=== PATIENT | male | born 1965 | race Caucasian/White ===

== ENCOUNTER 2023-12-19 10:57 | Emergency (ER) | payer BC, SELFPAY ==
[2023-12-19 11:02] VITALS: BP 149/98
--- NOTE | 2023-12-19 11:43 | ED.GENMED ---
History of Present Illness
General
Chief Complaint: Musculo-Skeletal Complaint
Source: patient
Exam Limitations: none
Time Seen by Provider: 12/19/23 11:25
Nursing documentation reviewed up to this point in time: agreed with
History of Present Illness
History of Present Illness:
58-year-old right-handed male with a past medical history of GERD who presents to the emergency department for evaluation of a left hand injury. Patient reports that he was lifting a heavy box last night and he felt a minor pop in his left hand at
the base of his middle finger. He says that when he looked at it he noticed his extensor tendon near his third MCP joint looks to be deviated towards the pinky. He says that he moved his hand around to bed and seemed to go back to normal however
this morning woke up with pain and swelling near his third MCP joint and so he came to the ER for evaluation. He denies any other injuries or complaints.
Past History
Past History
ED Past Medical History: Other (DVT)
ED Past Surgical History: None
Social History
Tobacco: Non-smoker
Personal:
Living: with family
Employment: Employed
Review of Systems
Review of Systems
All Other Systems: ROS reviewed and negative except as documented in HPI and ROS
Musculoskeletal: Reports other (Hand pain and swelling)
Phy Exam
Physical Exam
Physical Exam:
General: Well appearing and non-toxic
HEENT: protecting airway
Neck: appears supple
CV: No evidence of cyanosis
Resp: No accessory muscle use
Abd: Non-distended
Extremities: Patient has swelling of the left hand over the dorsum of the third MCP joint and localized tenderness in this area and minor bruising; he is able to move the hand including the third digit at the MCP joint through full flexion and
extension with reasonable strength only mild pain at extremes of flexion and extension of the third digit; brisk capillary refill, warm and well-perfused
Neuro: Alert
Psych: Normal affect
Skin: Intact
Scores
Heart Failure Risk
Heart Failure Risk Score: Not Applicable
Heart Score for Chest Pain Patients
STEMI patient?: Not applicable
Withdrawal Assessment of Alcohol
Withdrawal Assessment Completed?: Not applicable
Course
Orders/Labs/Results
Orders:
Orders
12/19/23 11:34
CR Hand - Left Min 3 Views Urgent
Comment:
Reason For Exam: pain, swelling tenderness 3rd MCP joint
Vital Signs
Initial and Last Documented VS:
Initial Vital Signs
Temp Pulse Resp BP Pulse Ox
36.9 C 73 18 149/98 99
12/19/23 11:02 12/19/23 11:02 12/19/23 11:02 12/19/23 11:02 12/19/23 11:02
Last Documented Vital Signs
Temp Pulse Resp BP Pulse Ox
36.9 C 73 18 149/98 99
12/19/23 11:02 12/19/23 11:02 12/19/23 11:02 12/19/23 11:02 12/19/23 11:02
MDM/Problems Addressed
Differential Diagnosis Includes:
Extensor tendon injury, dislocation or subluxation of the MCP joint, fracture
MDM/Problems Addressed:
58-year-old male presents for evaluation of left hand injury as described above. Swelling and tenderness dorsum of the left third MCP joint. Check x-ray of the hand. Reassess after the above.
X-ray reviewed by caridad fracture or dislocation noted. Concern for extensor tendon injury, discussed with orthopedics will place in a volar short arm mitten splint. Follow-up with hand surgery as an outpatient. Spoke to patient about likely
diagnosis, treatment and follow-up plan. He is comfortable with this. All questions answered.
*Radiology
Radiology exam reviewed: preliminary read by ED provider and radiology read reviewed
*Pulse Oximetry
Patient hypoxic: no
*Critical Care Note
Total Time (30-74mins, 75-104mins- exclusive of procedures): Not Applicable
Data Reviewed
Source: patient
Patient Management
Discussion with other providers: Music Leader (Discussed with orthopedics)
ED Attending Note
-
Portions of this chart may have been created with voice recognition software.� Occasional wrong word or��sound alike� substitutions may have occurred due to the inherent limitations of voice recognition software.
Discharge Plan
Departure
Patient Disposition: Home (Routine Discharge)
Date of Disposition: 12/19/23
Time of Disposition: 12:34
Patient with high blood pressure during this ER visit?: Yes
Discharge Problem:
Injury of extensor tendon of left hand
Instructions: Hand Pain (DC)
Prescriptions:
No Action
alprazolam 0.25 MG tablet
0.25 mg PO Q8HPRN PRN (Reason: anxiety)
albuterol sulfate 1 PUFF HFA aerosol inhaler
1 puff inhalation R Q4HPRN PRN (Reason: cough, shortness of breath) Qty: 1 1RF
Referrals:
Oswaldo Davidson DO [Family Provider] -
Hamzah Markham MD [Active] - Call in 1-3 days for appt (Hand Specialist)
Activity Restrictions/Additional Instructions:
Thank you for visiting the Emergency Department at [facility].
1. Please schedule a follow up appointment as directed. Call first thing tomorrow morning to make an appointment.
2. If indicated, please take your medications as instructed and indicated on discharge paperwork.
3. If any of your symptoms do not improve, or persist, or become more severe within 6-12 hours, please return to the emergency department for further care.
4. Please return to the emergency department if you develop a headache, neck pain/stiffness, fever greater than 100.4F, chest pain, shortness of breath, persistent nausea, vomiting, slurred speech, difficulty walking, numbness/tingling, weakness,
signs of infection or any other symptoms that are worrisome to you.
Please call [phone] if you have any questions.
Interventions
Interventions:
*Risk Screen - Suicide Last Done: 12/19/23 11:02
*General Assessment Last Done: 12/19/23 11:02
*Neglect/Abuse Screening Last Done: 12/19/23 11:02
Discharge Date and Time
Print Language: FRENCH
== END 2023-12-19 12:45 | disposition home or self-care (01) ==
LOC: EMR 10:57
PROVIDERS: EMERGENCY PHYSICIAN Emergency Medicine; FAMILY PHYSICIAN Family Medicine
DX: S66.303A Unspecified injury of extensor muscle, fascia and tendon of left middle finger at wrist and hand level, initial encounter (principal); M79.89 Other specified soft tissue disorders; X50.0XXA Overexertion from strenuous movement or load, initial encounter; R03.0 Elevated blood-pressure reading, without diagnosis of hypertension; K21.9 Gastro-esophageal reflux disease without esophagitis; Z86.718 Personal history of other venous thrombosis and embolism; Z91.048 Other nonmedicinal substance allergy status
CPT/HCPCS: 99283; 29125; 73130

== ENCOUNTER 2024-05-07 17:30 | Emergency (ER) | payer BC, SELFPAY ==
[2024-05-07 17:36] VITALS: BP 150/85
--- NOTE | 2024-05-07 18:36 | ED.GENMED ---
History of Present Illness
General
Chief Complaint: Skin Surface Trauma
Source: patient
Exam Limitations: none
Time Seen by Provider: 05/07/24 18:16
Nursing documentation reviewed up to this point in time: agreed with
History of Present Illness
History of Present Illness:
PT IS A 59 Y/O M R hand dominant
here with L index finger tip laceration when he was trimming hedges at home abuot 2 hours ago
pt has not had any numbness/tingling
he has had some oozing but controlled with a dressing
his tetanus is outdated he believes, he cannot remember date, so he would like one
no AC
Past History
Past History
ED Past Medical History: Other (DVT)
ED Past Surgical History: None
Social History
Tobacco: Non-smoker
Personal:
Living: with family
Employment: Employed
Review of Systems
Review of Systems
Allergies reviewed?: Yes
All Other Systems: Not applicable
Phy Exam
Physical Exam
Physical Exam:
GENERAL: Alert , in no apparent distress
E
CARDIAC: Regular rate and rhythm 2+ radial pulse, cap refill intact < 2 sec
LUNGS: Clear breath sounds bilaterally, no acute respiratory distress, no wheezes/rales/rhonchi
NEUROLOGICAL: Alert and oriented, no focal neuro deficits
SKIN: Warm and dry, arc shaped laceration fingertip of L index finger 0.75 cm
some oozing
controlled with pressure
MUSCULOSKELETAL: fingertip laceration
full ROM
full sensation
PSYCH: Normal and appropriate interaction.
Course
Orders/Labs/Results
Orders:
Orders
05/07/24 18:39
Tetanus/Diphth/Acelpertussis [Adacel] 0.5 ml IM .ONCE ONE
Vital Signs
Initial and Last Documented VS:
Initial Vital Signs
Temp Pulse Resp BP Pulse Ox
36.9 C 82 18 150/85 99
05/07/24 17:36 05/07/24 17:36 05/07/24 17:36 05/07/24 17:36 05/07/24 17:36
Last Documented Vital Signs
Temp Pulse Resp BP Pulse Ox
36.9 C 82 18 150/85 99
05/07/24 17:36 05/07/24 17:36 05/07/24 17:36 05/07/24 17:36 05/07/24 17:36
Procedures
Laceration Closure
Left Second Finger(s):
Status of Wound: clean
Size of Wound in cm: 0.75
Description of Wound Edges: sharp
Preparation: cleaned with saline
Anesthesia: 1% Lidocaine
Revision/Debridement: routine- no revision
Wound exploration: explored to base- no FB
Type of Closure: single layer closure
Skin Closure Material: 5-0 nylon
Number of sutures: 4
MDM/Problems Addressed
Differential Diagnosis Includes:
laceration,, avulsion
MDM/Problems Addressed:
59 yo M
R hand dominant
L index finger tip laceration
arc shaped
still attached
oozing
nv intact
irrigatd, anesthetized and closed with sutures
bacitracin dressing
wound care instruction sgiven
tetanus updated
*Critical Care Note
Total Time (30-74mins, 75-104mins- exclusive of procedures): Not Applicable
ED Attending Note
-
Portions of this chart may have been created with voice recognition software.� Occasional wrong word or��sound alike� substitutions may have occurred due to the inherent limitations of voice recognition software.
Discharge Plan
Departure
Patient Disposition: Home (Routine Discharge)
Patient with high blood pressure during this ER visit?: No
Condition: Fair
Discharge Problem:
Finger laceration
Instructions: Laceration Repair With Stitches (DC)
Prescriptions:
No Action
alprazolam 0.25 MG tablet
0.25 mg PO Q8HPRN PRN (Reason: anxiety)
albuterol sulfate 1 PUFF HFA aerosol inhaler
1 puff inhalation R Q4HPRN PRN (Reason: cough, shortness of breath) Qty: 1 1RF
Referrals:
Oswaldo Davidson, [Family Provider] -
Activity Restrictions/Additional Instructions:
KEEP THE WOUND CLEAN AND DRY FOR 24 HOURS
AFTER THAT YOU CAN GET IT WET IN THE BATH/SHOWER ONCE A DAY AND MAKE SURE IT IS CLEAN AND THERE IS NO DRIED BLOOD ON THE STITCHES
APPLY NEOSPORIN AND A BANDAID
THE STITCHES NEED TO BE REMOVED IN ABOUT 7-10 DAYS, SEE YOUR DOCTOR FOR THIS.
THE LAST DAY BEFORE STITCHES OUT, NO OINTMENT, LEAVE OPEN TO AIR
WATCH FOR SIGNS OF INFECTION AND RETURN NEEDED FOR PAIN, SWELLING, REDNESS, DRAINAGE, BLEEDING.
MOTRIN NEEDED FOR PAIN.
Interventions
Interventions:
*Risk Screen - Suicide Last Done: 05/07/24 17:36
*General Assessment Last Done: 05/07/24 17:36
*Neglect/Abuse Screening Last Done: 05/07/24 17:36
*ED- Fall Risk Assessment Last Done: 05/07/24 17:36
*ED COVID-19 Vaccine History Last Done: 05/07/24 17:36
*Nursing Disposition Last Done: 05/07/24 18:57
ED-Skin Assessment Last Done: 05/07/24 17:41
Discharge Date and Time
Discharge Date/Time: 05/07/24 18:57
Print Language: CROATIAN
[2024-05-07] MEDS: ADACEL 0.5 ML IM (18:45)
== END 2024-05-07 18:57 | disposition home or self-care (01) ==
LOC: EMR 17:30
PROVIDERS: EMERGENCY PHYSICIAN Emergency Medicine; FAMILY PHYSICIAN Family Medicine
DX: S61.211A Laceration without foreign body of left index finger without damage to nail, initial encounter (principal); W29.3XXA Contact with powered garden and outdoor hand tools and machinery, initial encounter; Z23 Encounter for immunization; Z86.718 Personal history of other venous thrombosis and embolism
CPT/HCPCS: 99282; 12001; 90471; 90715